=== PATIENT | female | born 1990 | race Caucasian/White ===

== ENCOUNTER 2016-09-28 17:31 | Emergency (ER) | payer MEDICAID, OTHER ==
[~2016-09-28] VITALS: Ht 160 cm; Wt 90.0 kg
[~2016-09-28 17:31] MED LIST: ACET-915 PO; DENIES; [UNRECOGNIZED DRUG - REMARK]
[2016-09-28 17:43] VITALS: Ht 160 cm; Wt 90.0 kg
--- NOTE | 2016-09-28 18:09 | ERA ---
ER Documentation Chief Complaint Date/Time DATE: 09/28/16 TIME: 18:08 Chief Complaint PT with fever, body aches, ST an dcongestions X 2 days. HPI The patient is a 26-year-old female, presenting to the ER because of fever, sore throat for 1 day, denies facial pain, neck pain, chest pain, dyspnea, abdominal pain, vomiting with dysuria, diarrhea. She does not smoke or drink Past medical history: None Past surgical history: , cholecystectomy ROS All systems reviewed and are negative except as per history of present illness. Medications Home Meds Active Scripts Ibuprofen* (Motrin*) 600 Mg Tab, 600 MG PO Q6, #20 TAB Prov:YUNIEL HAYES MD 09/28/16 Azithromycin* (Zithromax*) 250 Mg Tablet, 250 MG PO .ZPACK DIRECTED, #6 TAB TAKE 500 MG (2 TABS) THE FIRST DAY THEN 250 MG (1 TAB) DAYS 2-5 Prov:YUNIEL HAYES MD 09/28/16 Reported Medications Acetaminophen* (Tylenol*) 325 Mg Tab, 325 MG PO NEEDED FOR PAIN 10/02/10 [Pain Pills Unknown] No Conflict Check 06/06/10 [Denies] No Conflict Check 03/07/10 Allergies Allergies: Coded Allergies: Amoxicillin (Verified Allergy, Mild, 10/02/10) Penicillins (Verified Allergy, Mild, 10/02/10) PMhx/Soc History of Surgery: Yes (C SECTION X1) Anesthesia Reaction: No Hx Neurological Disorder: No Hx Respiratory Disorders: No Hx Cardiac Disorders: No Hx Psychiatric Problems: No Hx Miscellaneous Medical Probl: No Hx Alcohol Use: No Hx Substance Use: No Hx Tobacco Use: No Physical Exam Vitals Vital Signs Date Time Temp Pulse Resp B/P Pulse Ox O2 Delivery O2 Flow Rate FiO2 09/28/16 17:43 104.0 130 18 127/68 98 Physical Exam Const: No acute distress. Head: Atraumatic. Eyes: Normal Conjunctiva. ENT: Normal External Ears, Nose and Mouth. Tonsils are edematous, erythematous, exudate Neck: Full range of motion. No meningismus. Resp: Clear to auscultation bilaterally. Cardio: Regular tachycardic Abd: Soft, non distended, normal bowel sounds, non tender. Skin: No petechiae or rashes. Back: No midline or flank tenderness. Ext: No cyanosis, or edema. Neur: Awake and alert. No focal deficit Psych: Normal Mood and Affect. Results 24 hrs Laboratory Tests Test 09/28/16 18:35 Urine Color YELLOW Urine Clarity SLIGHTLY CLOUDY Urine pH 5.0 Urine Specific [place] 1.019 Urine Ketones NEGATIVEmg/dL Urine Nitrite NEGATIVEmg/dL Urine Bilirubin NEGATIVEmg/dL Urine Urobilinogen NEGATIVEmg/dL Urine Leukocyte Esterase TRACELeu/ul Urine Microscopic RBC 8/HPF Urine Microscopic WBC 6/HPF Urine Squamous Epithelial Cells FEW/HPF Urine Mucus FEW/HPF Urine Hemoglobin 2+mg/dL Urine Glucose NEGATIVEmg/dL Urine Total Protein 1+mg/dl Current Medications Medications (Trade) Dose Ordered Sig/Matt Route PRN Reason Start Time Stop Time Status Last Admin Dose Admin Acetaminophen 650 mg 650 mg ONCE ONCE PO 09/28/16 18:30 09/28/16 18:31 DC 09/28/16 18:29 Sodium Chloride 1,000 ml @ 1,000 mls/hr Q1H ONCE IV 09/28/16 18:30 09/28/16 19:29 DC 09/28/16 18:34 Sodium Chloride (NS) 1,000 ml @ 1,000 mls/hr Q1H ONCE IV 09/28/16 18:30 09/28/16 19:29 DC 09/28/16 18:41 Ketorolac Tromethamine (Toradol) 30 mg ONCE STAT IV 09/28/16 19:47 09/28/16 19:48 DC 09/28/16 19:53 Procedures/[place] [id number] Radiology Main Line: [phone] DIAGNOSTIC IMAGING REPORT Patient: TE PADRON : 1990 Age: 26 Sex: F MR #: [id number] DOS: 09/28/16 0000 Ordering MD: YUNIEL HAYES MD Location: [facility] Room/Bed: PROCEDURE: XR Chest. CLINICAL INDICATION: Fevers. TECHNIQUE: Single frontal chest x-ray. COMPARISON: None. FINDINGS: The lungs are clear. No focal opacification is seen. The cardiomediastinal silhouette is unremarkable. The osseous structures are unremarkable. IMPRESSION: 1. There is no acute cardiopulmonary process. RPTAT: PP .Benny Dimas MD, MD Date Time Electronically viewed and signed by .Benny Dimas MD, MD on 09/28/2016 19:23 .B/ CC: YUNIEL HAYES MD MEDICAL MAKING DECISION: The patient is a 25-year-old female, presenting with acute tonsillitis, acute dehydration. She was treated with 2 L normal saline for acute dehydration, Tylenol for fever and Toradol 30 mg IV for pain with good response The differential diagnoses considered include but are not limited to pneumonia, cystitis, pyelonephritis Departure Diagnosis: Primary Impression: Tonsillitis Additional Impression: Dehydration Condition: Good Comments She was discharged with amoxicillin and Motrin I discussed the findings with the patient. I advised the patient to follow-up with the primary physician in about 1-2 days, sooner if needed and return if any concern. YUNIEL HAYES MD Sep 28, 2016 18:08
[2016-09-28] MEDS ORDERED: SOD CHLORIDE 0.9% 1,000 ML IV ONE ×2 (18:30)
[2016-09-28] MEDS ORDERED: ACETAMINOPHEN 325 MG TAB PO ONE (18:30)
[2016-09-28 19:15] LABS: ADD UMIC YES; UR ASCORBIC ACID 20 mg/dL (NEGATIVE); UR BILIRUBIN (Dip) NEGATIVE (NEGATIVE); UR BLOOD (Dip) 2+ mg/dL (NEGATIVE); UR CLARITY SLIGHTLY CLOUDY (CLEAR); UR COLOR YELLOW (YELLOW); UR GLUCOSE (Dip) NEGATIVE (NEGATIVE); UR KETONES (Dip) NEGATIVE (NEGATIVE); UR LEUKOCYTE ESTERASE (Dip) TRACE Leu/ul (NEGATIVE); UR MUCUS FEW /HPF (NONE SEEN); UR NITRITE (Dip) NEGATIVE (NEGATIVE); UR RBC 8 /HPF (0-5); UR SPECIFIC GRAVITY (Dip) 1.019 (1.003-1.030); UR SQUAMOUS EPITHELIAL CELL FEW /HPF (FEW); UR TOTAL PROTEIN (Dip) 1+ mg/dl (NEGATIVE); UR UROBILINOGEN (Dip) NEGATIVE (NEGATIVE)
--- NOTE | 2016-09-28 19:23 | RADRPT ---
PROCEDURE: XR Chest. CLINICAL INDICATION: Fevers. TECHNIQUE: Single frontal chest x-ray. COMPARISON: None. FINDINGS: The lungs are clear. No focal opacification is seen. The cardiomediastinal silhouette is unremarka ble. The osseous structures are unremarkable. IMPRESSION: 1. There is no acute cardiopulmonary process. RPTAT: PP .Benny Dimas MD, MD Date Time Electronically viewed and signed by .Benny Dimas MD, on 09/28/2016 19:23 .B/
[2016-09-28] MEDS ORDERED: AZIT250T94 PO (19:43)
[2016-09-28] MEDS ORDERED: IBUP-1542 PO (19:43)
[2016-09-28] MEDS ORDERED: KETOROLAC 30 MG INJ IV STA (19:47)
[2016-09-28 21:09] VITALS: BP 108/58; PULSE 101; RESP 18; TEMP 99.2
[2016-10-01] MEDS ORDERED: ACET500C5 PO (08:45)
[2016-10-01] MEDS ORDERED: FAMO-96 PO (08:45)
[2016-10-01] MEDS ORDERED: BEN25 PO (08:45)
[2016-10-01] MEDS ORDERED: TRIA15CR55 TOP (08:45)
[2016-10-01] MEDS ORDERED: CLIN-73 PO (08:45)
== END 2016-09-28 21:27 | disposition home or self-care (01) ==
LOC: FTE 17:31
DX: J03.90 Acute tonsillitis, unspecified (principal); E86.0 Dehydration
CPT/HCPCS: 71010; 81001; 96374; J1885; J7030; Z7502; Z7610

== ENCOUNTER 2016-10-01 08:19 | Emergency (ER) | END 2016-10-01 09:20 | disposition home or self-care (01) | DX: J03.90 Acute tonsillitis, unspecified (principal); L50.9 Urticaria, unspecified ==

== ENCOUNTER 2016-10-03 01:12 | Emergency (ER) | payer OTHER ==
[~2016-10-03] VITALS: Ht 160 cm; Wt 86.4 kg
[~2016-10-03 01:12] MED LIST changes: +ACET500C5 PO; +AZIT250T94 PO; +BEN25 PO; +CLIN-73 PO; +FAMO-96 PO; +IBUP-1542 PO; +TRIA15CR55 TOP
[2016-10-03 01:14] VITALS: Ht 160 cm; Wt 86.4 kg
[2016-10-03 04:28] LABS: WHITE BLOOD COUNT 6.5 10^3/ul (4.8-10.8)
[2016-10-03 04:29] LABS: HEMATOCRIT 34.6 % (37.0-47.0); HEMOGLOBIN 11.8 g/dl (12.0-16.0); MEAN CORPUSCULAR HEMOGLOBIN 27.8 pg (29.0-33.0); MEAN CORPUSCULAR HGB CONC 34.1 g/dl (32.0-37.0); MEAN CORPUSCULAR VOLUME 81.4 fl (82.0-101.0); MEAN PLATELET VOLUME 8.9 fl (7.4-10.4); PLATELET COUNT 288 10^3/UL (140-415); RED BLOOD COUNT 4.25 10^6/ul (4.20-5.40); RED CELL DISTRIBUTION WIDTH 12.3 % (11.5-14.5)
[2016-10-03 04:36] LABS: POSITIVE DIFF @See below
[2016-10-03 04:45] LABS: CALCIUM 9.3 mg/dl (8.4-10.2); CREATININE 0.62 mg/dl (0.44-1.00); POTASSIUM 3.4 mmol/L (3.5-5.1)
[2016-10-03] MEDS ORDERED: SOD CHLORIDE 0.9% 100 ML ONE (05:10)
[2016-10-03] MEDS ORDERED: IOHEXOL 300MG/ML 150 ML BTL ONE (05:10)
--- NOTE | 2016-10-03 05:15 | ERD ---
ER Documentation Chief Complaint Date/Time DATE: 10/03/16 TIME: 05:11 Chief Complaint swollen upper lip&rash over arms & tummy today,no SOB,on Cipro&Z-pack HPI This is a 26-year-old female presenting to the emergency department with sore throat and neck pain x 1 week. Patient states she was here twice before and was started on 2 different antibiotics. Patient states the first time she was here she was started on azithromycin and developed a pruritic rash to neck and chest. Patient was then switched to clindamycin and continues to have rash that is spreading and swelling to upper lip and face. No difficulty swallowing or drooling. No difficulty breathing or shortness of breath. Patient states she continues to have sore throat. Patient has muffled voice. Patient talking complete sentences. No fevers or chills. ROS All systems reviewed and are negative except as per history of present illness. Medications Home Meds Active Scripts Hydrocodone/Acetaminophen ([place] 5-325 Tablet) 1 Each Tablet, 1 TAB PO Q6H Y for PAIN, #15 TAB Prov:HEAVEN OVIEDO NP 10/03/16 Triamcinolone Acetonide (Triamcinolone Acetonide) 0.1% - 15 Gm Cream.gm., 1 APPLIC TOP BID, #1 TUB Prov:ADELITA BANDA PA-C 10/01/16 Acetaminophen* (Tylophen*) 500 Mg Capsule, 1 CAP PO Q6H Y for PAIN AND OR ELEVATED TEMP, #20 CAP Prov:ADELITA BANDA-C 10/01/16 Famotidine* (Pepcid*) 20 Mg Tablet, 20 MG PO BID for 4 Days, TAB Prov:ADELITA BANDA-C 10/01/16 Diphenhydramine Hcl* (Benadryl*) 25 Mg Cap, 25 MG PO Q6, #30 CAP Prov:ADELITA BANDA-Osmar 10/01/16 Clindamycin Hcl* (Clindamycin Hcl*) 300 Mg Capsule, 300 MG PO TID for 10 Days, CAP Prov:ADELITA BANDA-C 10/01/16 Ibuprofen* (Motrin*) 600 Mg Tab, 600 MG PO Q6, #20 TAB Prov:YUNIEL HAYES MD 09/28/16 Azithromycin* (Zithromax*) 250 Mg Tablet, 250 MG PO .ZPACK DIRECTED, #6 TAB TAKE 500 MG (2 TABS) THE FIRST DAY THEN 250 MG (1 TAB) DAYS 2-5 Prov:YUNIEL HAYES MD 09/28/16 Reported Medications Acetaminophen* (Tylenol*) 325 Mg Tab, 325 MG PO NEEDED FOR PAIN 10/02/10 [Pain Pills Unknown] No Conflict Check 06/06/10 [Denies] No Conflict Check 03/07/10 Allergies Allergies: Coded Allergies: Amoxicillin (Verified Allergy, Mild, 10/02/10) Penicillins (Verified Allergy, Mild, 10/02/10) PMhx/Soc History of Surgery: Yes (C SECTION X2, gallbladder) Anesthesia Reaction: No Hx Neurological Disorder: No Hx Respiratory Disorders: No Hx Cardiac Disorders: No Hx Psychiatric Problems: No Hx Miscellaneous Medical Probl: No Hx Alcohol Use: No Hx Substance Use: No Hx Tobacco Use: No Smoking Status: Never smoker Physical Exam Vitals Vital Signs Date Time Temp Pulse Resp B/P Pulse Ox O2 Delivery O2 Flow Rate FiO2 10/03/16 01:14 97.1 93 18 120/58 97 Physical Exam Const: No acute distress, alert Head: Atraumatic Eyes: Normal Conjunctiva ENT: Normal External Ears, Nose and Mouth. Kissing tonsils, exudate and erythema to bilateral tonsils. No peritonsillar abscess. Neck: Full range of motion..~ No meningismus. Resp: Clear to auscultation bilaterally Cardio: Regular rate and rhythm, no murmurs Abd: Soft, non tender, non distended. Normal bowel sounds Skin: No petechiae or rashes Back: No midline or flank tenderness Ext: No cyanosis, or edema Neur: Awake and alert Psych: Normal Mood and Affect Result Diagram: 10/03/16 0348 10/03/16 0348 Results 24 hrs Laboratory Tests Test 10/03/16 03:48 White Blood Count 6.510^3/ul Red Blood Count 4.2510^6/ul Hemoglobin 11.8g/dl Hematocrit 34.6% Mean Corpuscular Volume 81.4fl Mean Corpuscular Hemoglobin 27.8pg Mean Corpuscular Hemoglobin Concent 34.1g/dl Red Cell Distribution Width 12.3% Platelet Count 92521^3/UL Mean Platelet Volume 8.9fl Neutrophils % % Lymphocytes % % Monocytes % % Eosinophils % % Basophils % % Nucleated Red Blood Cells % 0.0/100WBC Neutrophils # (Manual) 410^3/ul Lymphocytes # 10^3/ul Monocytes # 10^3/ul Eosinophils # 10^3/ul Basophils # 10^3/ul Nucleated Red Blood Cells # 10^3/ul Sodium Level 145mmol/L Potassium Level 3.4mmol/L Chloride Level 99mmol/L Carbon Dioxide Level 29mmol/L Anion Gap 20 Blood Urea Nitrogen 13mg/dl Creatinine 0.62mg/dl Glucose Level 93mg/dl Calcium Level 9.3mg/dl Current Medications Medications (Trade) Dose Ordered Sig/Matt Route PRN Reason Start Time Stop Time Status Last Admin Dose Admin IV Flush 10 ml 10 ml STK-MED ONCE .ROUTE 10/03/16 05:10 10/03/16 05:11 DC 10/03/16 05:20 Sodium Chloride (NS) 100 ml @ ud STK-MED ONCE .ROUTE 10/03/16 05:10 10/03/16 05:11 DC 10/03/16 05:20 Iohexol (Omnipaque 300mg/ ml) 150 ml STK-MED ONCE .ROUTE 10/03/16 05:10 10/03/16 05:11 DC 10/03/16 05:20 Procedures/[place] [address] Radiology Main Line: [phone] DIAGNOSTIC IMAGING REPORT Patient: TE PADRON : 1990 Age: 26 Sex: F [id number] DOS: 10/03/16 0300 Ordering MD: HEAVEN OVIEDO NP Location: [facility] Room/Bed: PROCEDURE: CT neck with contrast. CLINICAL INDICATION: Swelling and difficulty swallowing. TECHNIQUE: CT of the neck was performed on a multi-detector high-resolution CT scanner. Contiguous axial images were obtained after the administration of 90 cc Omnipaque 300 intravenous contrast. Coronal and sagittal reformatted images were obtained. Images were reviewed on a PACS workstation. One or more of the following dose reduction techniques were used: - Automated exposure control. - Adjustment of the mA and/or kV according to patient size. - Use of iterative reconstruction technique. Exam CTD/vol = 9.52 mGy. Total exam DLP = 227.33 mGy-cm. COMPARISON: None. FINDINGS: There are enlarged tonsils and adenoids. There is no abnormal mass or fluid collection identified. The nasopharynx, oropharynx, hypopharynx and larynx are otherwise within normal limits. The tongue and tongue base are within normal limits. The vallecula and piriform sinuses are within normal limits. Bilateral parotid and submandibular glands are within normal limits. There are enlarged jugulodigastric and submandibular lymph nodes bilaterally with the largest within the right cervical level II measuring 2.1 x 2.0 cm. The thyroid gland is unremarkable. There is minimal mucoperiosteal disease within bilateral maxillary and sphenoid sinuses. Bilateral mastoid air cells are clear. The lung apices are clear. IMPRESSION: Enlarged tonsils and adenoids. There is no abnormal mass or fluid collection identified. Mild to moderate cervical lymphadenopathy. Minimal paranasal sinus inflammatory disease. MDM: 26 year old female presents to ER with neck pain and sore throat. Patient was started antibiotics on 2 separate occasions for tonsillitis and continues to have sore throat. Patient was first started on azithromycin and developed an allergic reaction and then started on clindamycin. Patient continues to have pruritic rash to neck and upper back. Because this is patient 's third visit with same symptoms, labs and IV ordered. IV access obtained per staff air defense officer. CBC shows no significant anemia or infection. BMP shows no significant electrolyte imbalance. Rapid strep test is negative. CT neck soft tissue with contrast reviewed by radiologist as enlarged tonsils and adenoids. There is no abnormal mass or fluid collection identified. Mild to moderate cervical lymphadenopathy. Minimal paranasal sinus inflammatory disease. Patient remains alert and oriented throughout ED visit. In no acute distress. Patient is talking normally. No difficulty swallowing or drooling. Vital signs are stable. Differential diagnosis includes but not limited to strep pharyngitis, pneumonia , viral pharyngitis, influenza, coxsackievirus, herpes simplex virus, [place]- Roper virus, Respiratory syncytial virus and otitis media. Patient likely has viral pharyngitis. Patient is appropriate for outpatient management and will be discharged with prescription for Motrin. Instructed patient to follow up with primary care provider in the next 2-3 days for reassessment.Return to ED for any high fever, chest pain, difficulty breathing, shortness breath, wheezing, vomiting, diarrhea , abdominal pain or any new or worsening symptoms. Patient verbalizes understanding. All questions answered at discharge. Departure Diagnosis: Primary Impression: Tonsillitis Condition: Stable HEAVEN OVIEDO NP Oct 03, 2016 05:15
--- NOTE | 2016-10-03 05:43 | RADRPT ---
PROCEDURE: CT neck with contrast. CLINICAL INDICATION: Swelling and difficulty swallowing. TECHNIQUE: CT of the neck was performed on a multi-detector high-resolution CT scanner. Contiguou s axial images were obtained after the administration of 90 cc Omnipaque 300 intravenous contrast. Coronal and sagittal reformatted images were obtained. Images were reviewed on a PACS workstation. One or more of the following dose reduction techniques were used: - Automated exposure control. - Adjustment of the mA and/or kV according to patient size. - Use of iterative reconstruction technique. Exam CTD/vol = 9.52 mGy. Total exam DLP = 227.33 mGy-cm. COMPARISON: None. FINDINGS: There are enlarged tonsils and adenoids. There is no abnormal mass or fluid collection identified. The nasopharynx, oropharynx, hypopharynx and larynx are otherwise within normal limits. The tongue and tongue base are within normal limits. The vallecula and piriform sinuses are within normal pineda its. Bilateral parotid and submandibular glands are within normal limits. There are enlarged jugul odigastric and submandibular lymph nodes bilaterally with the largest within the right cervical leve l II measuring 2.1 x 2.0 cm. The thyroid gland is unremarkable. There is minimal mucoperiosteal di sease within bilateral maxillary and sphenoid sinuses. Bilateral mastoid air cells are clear. The lung apices are clear. IMPRESSION: Enlarged tonsils and adenoids. There is no abnormal mass or fluid collection identified. Mild to moderate cervical lymphadenopathy. Minimal paranasal sinus inflammatory disease. .Jayson Kline MD, Date Time Electronically viewed and signed by .Jayson Kline MD, on 10/03/2016 05:43 .T/
[2016-10-03] MEDS ORDERED: HYDR-906 PO (06:00)
[2016-10-03 06:15] VITALS: BP 132/59; PULSE 86; RESP 16
[2016-10-03 07:28] LABS: BLAST% (M) 3 % (0-0); EOSINOPHILS # 0.3 10^3/ul (0.0-0.5); MONOCYTE # 0.3 10^3/ul (0.3-0.9); MONOCYTES % (M) 5 % (0-11); NEUTROPHIL # 3.7 10^3/ul (1.6-7.5)
[2016-10-03 08:17] LABS: BASOPHILS % 0.3 % (0.0-2.0); EOSINOPHILS % 1.4 % (0.0-7.0)
[2016-10-03 08:19] LABS: NEUTROPHILS % 63.9 % (39.0-77.0)
[2016-10-03 08:20] LABS: LYMPHOCYTES % 28.6 % (15.0-51.0); MONOCYTES % 5.2 % (0.0-11.0)
== END 2016-10-03 06:17 | disposition home or self-care (01) ==
LOC: FTE 01:12
DX: J03.90 Acute tonsillitis, unspecified (principal)
CPT/HCPCS: 36415; 70491; 80048; 85025; 87880; Q9967; Z7502; Z7610

== ENCOUNTER 2017-04-07 20:01 | Emergency (ER) | END 2017-04-08 02:09 | disposition home or self-care (01) ==